=== PATIENT | male | born 1975 | race Caucasian/White ===

== ENCOUNTER 2016-11-16 16:49 | Inpatient (IN) | payer OTHER ==
[~2016-11-16] VITALS: Ht 193 cm; Wt 156.7 kg
[2016-11-16] MEDS ORDERED: LVNIS80 SC (18:23)
[2016-11-16] MEDS ORDERED: DOCU-94 PO (18:23)
[2016-11-16] MEDS ORDERED: CHOL2000 PO (18:23)
[2016-11-16] MEDS ORDERED: GABA600T PO (18:23)
[2016-11-16] MEDS ORDERED: ASCO10003 PO (18:23)
[2016-11-16] MEDS ORDERED: METH-307 PO (18:23)
[2016-11-16] MEDS ORDERED: HYDR-4079 PO (18:23)
[2016-11-16 18:42] LABS: BASO % 0.5 %; BASO ABS # 0.03 K/uL (0-0.2); COMPLETE YES; EOS % 1.9 %; HEMATOCRIT 35.9 % (42-52); IG% 0.2 %; LYMPH % 39.2 %; LYMPH ABS # 2.26 K/uL (1.2-3.4); MEAN CELL VOLUME 91.1 fL (80-100); MEAN CORPUSCULAR HEMOGLOBIN 29.2 pg (25-34); MEAN PLATELET VOLUME 9.8 fL (7.4-10.4); MONO % 7.8 %; NEUT % 50.4 %; PLATELET COUNT 290 K/uL (130-400); RED BLOOD COUNT 3.94 M/uL (4.7-6.1); WHITE BLOOD COUNT 5.76 K/uL (4.8-10.8)
[2016-11-16 18:59] LABS: PARTIAL THROMBOPLASTIN RATIO 1.2
[2016-11-16 19:00] LABS: ALT/SGPT 33 U/L (12-78); AST/SGOT 41 U/L (15-37); BLOOD UREA NITROGEN 12 mg/dl (7-18); BUN/CREATININE RATIO 12.4 (10-20); CALCIUM 9.7 mg/dl (8.5-10.1); CARBON DIOXIDE 32 mmol/L (21-32); CHLORIDE 103 mmol/L (98-107); CREATININE 0.93 mg/dl (0.60-1.40); GLUCOSE 104 mg/dl (70-99); POTASSIUM 4.2 mmol/L (3.5-5.1); SODIUM 141 mmol/L (136-145)
[2016-11-16 19:03] LABS: ALKALINE PHOSPHATASE 82 U/L (45-117)
[2016-11-16] MEDS ORDERED: TRAMADOL HCL 50 MG TAB PO PRN (20:00)
[2016-11-16] MEDS ORDERED: ONDANSETRON INJ 2 MG/ML 2 ML VIAL IV PRN (20:00)
[2016-11-16] MEDS ORDERED: ACETAMINOPHEN 325 MG TAB PO PRN (20:00)
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
[2016-11-16] MEDS: METHOCARBAMOL 750 MG TAB PO SCH (21:00)
[2016-11-16] MEDS: GABAPENTIN 600 MG TAB PO SCH (21:00)
[2016-11-16] MEDS: HYDROCODONE/ACETAMI 10/325 TAB PO PRN (21:09)
[2016-11-16] MEDS ORDERED: HEPARIN 25000 UNIT/500 ML D5W ONE (21:11)
[2016-11-16] MEDS ORDERED: HEPARIN SOD 5000 UNIT/0.5 ML CARP ONE (21:11)
[2016-11-16 22:30] VITALS: BP 127/81; PULSE 96; TEMP 36.6; O2SAT 96; Ht 193 cm; Wt 156.7 kg
[2016-11-16 22:42] VITALS: BP 127/81; PULSE 95; TEMP 36.6; O2SAT 95
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
[2016-11-17 00:30] VITALS: BP 123/76; PULSE 95; TEMP 36.6; O2SAT 91
[2016-11-17] MEDS: HYDROCODONE/ACETAMI 10/325 TAB PO PRN ×4 (03:57→22:52)
[2016-11-17 04:10] LABS: HEMATOCRIT 32.3 % (42-52); MEAN CELL VOLUME 91.2 fL (80-100); MEAN CORPUSCULAR HEMOGLOBIN 28.8 pg (25-34); MEAN CORPUSCULAR HGB CONC 31.6 g/dl (32-36); MEAN PLATELET VOLUME 9.8 fL (7.4-10.4); PLATELET COUNT 255 K/uL (130-400); RED BLOOD COUNT 3.54 M/uL (4.7-6.1); WHITE BLOOD COUNT 4.92 K/uL (4.8-10.8)
[2016-11-17 04:36] LABS: BUN/CREATININE RATIO 12.8 (10-20); CALCIUM 9.3 mg/dl (8.5-10.1); CREATININE 0.82 mg/dl (0.60-1.40); POTASSIUM 4.3 mmol/L (3.5-5.1)
[2016-11-17 04:40] LABS: PARTIAL THROMBOPLASTIN RATIO 1.9
[2016-11-17 04:42] LABS: BASO % 0.4 %; BASO ABS # 0.02 K/uL (0-0.2); COMPLETE YES; LYMPH % 50.8 %; MONO % 6.3 %; NEUT % 39.5 %
[2016-11-17 07:38] VITALS: BP 118/77; PULSE 81; TEMP 36.3; O2SAT 97
[2016-11-17] MEDS: METHOCARBAMOL 750 MG TAB PO SCH ×4 (08:57→20:25)
[2016-11-17] MEDS: GABAPENTIN 600 MG TAB PO SCH ×3 (08:57→20:25)
[2016-11-17] MEDS: HEPARIN 25,000 UNIT/500ML D5W 500 ML IV PRN ×2 (09:33→22:53)
[2016-11-17 14:46] VITALS: BP 118/77; PULSE 98; TEMP 36.5; O2SAT 96
[2016-11-17] MEDS: POLYETHYLENE (MIRALAX) 17 GM PACK PO SCH (20:24)
[2016-11-17] MEDS: DOCUSATE SODIUM 100 MG CAP PO SCH (20:24)
--- NOTE | 2016-11-17 21:31 | Hospitalist Progress Note ---
Hospitalist Progress Note Date of Service Nov 17, 2016. Subjective Pt evaluation today including: conversation w/ patient, physical exam patient with no complaints All Other Systems: Reviewed and Negative Objective Vital Signs Date Time Temp Pulse Resp B/P Pulse Ox O2 Delivery O2 Flow Rate FiO2 11/17/16 20:01 Room Air 11/17/16 15:55 Room Air 11/17/16 14:46 36.5 98 20 118/77 96 11/17/16 08:00 Room Air 11/17/16 07:38 36.3 81 18 118/77 97 11/17/16 04:05 Room Air 11/17/16 00:30 36.6 95 20 123/76 91 Room Air 11/17/16 00:05 Room Air 11/16/16 22:42 36.6 95 18 127/81 95 Room Air 11/16/16 22:30 36.6 96 18 127/81 96 Room Air 11/16/16 21:15 94 24 129/83 97 Room Air Physical Exam General Appearance: no apparent distress Eyes: normal inspection ENT: hearing grossly normal Neck: trachea midline Respiratory/Chest: lungs clear Cardiovascular: regular rate, rhythm Abdomen: normal bowel sounds, non tender, soft Laboratory Results Last 24 Hours Test 11/17/16 03:49 White Blood Count 4.92 K/uL Red Blood Count 3.54 M/uL Hemoglobin 10.2 g/dL Hematocrit 32.3 % Mean Corpuscular Volume 91.2 fL Mean Corpuscular Hemoglobin 28.8 pg Mean Corpuscular Hemoglobin Concent 31.6 g/dl Platelet Count 255 K/uL Mean Platelet Volume 9.8 fL Neutrophils (%) (Auto) 39.5 % Lymphocytes (%) (Auto) 50.8 % Monocytes (%) (Auto) 6.3 % Eosinophils (%) (Auto) 3.0 % Basophils (%) (Auto) 0.4 % Neutrophils # (Auto) 1.94 K/uL Lymphocytes # (Auto) 2.50 K/uL Monocytes # (Auto) 0.31 K/uL Eosinophils # (Auto) 0.15 K/uL Basophils # (Auto) 0.02 K/uL RDW Standard Deviation 45.6 fL RDW Coefficient of Variation 13.5 % Immature Granulocyte % (Auto) 0.0 % Immature Granulocyte # (Auto) 0.00 K/uL Red Blood Cell Morphology Unremarkable Activated Partial Thromboplast Time 48.7 SECONDS Partial Thromboplastin Ratio 1.9 Sodium Level 141 mmol/L Potassium Level 4.3 mmol/L Chloride Level 103 mmol/L Carbon Dioxide Level 33 mmol/L Anion Gap 5.0 mmol/L Blood Urea Nitrogen 10 mg/dl Creatinine 0.82 mg/dl Est Creatinine Clear Calc Drug Dose 198.2 ml/min Estimated GFR () 130.0 Estimated GFR (Non- 112.2 BUN/Creatinine Ratio 12.8 Random Glucose 97 mg/dl Calcium Level 9.3 mg/dl Magnesium Level 2.0 mg/dl Assessment and Plan (1) Left leg DVT Assessment & Plan: on iv heparin will consider switch to xarelto or elequis on 11/18. Will check to see which is covered by insurance. Warfarin would not be the best option based on the amount of disease he has present. (2) Hypertension
[2016-11-18 00:29] VITALS: BP 146/83; PULSE 93; TEMP 36.6; O2SAT 96
[2016-11-18 06:25] LABS: PARTIAL THROMBOPLASTIN RATIO 1.5
[2016-11-18] MEDS ORDERED: HEPARIN IV BOLUS 5,000 UNIT in SYRINGE 0 ML IV ONE (07:15)
[2016-11-18 07:23] VITALS: BP 134/74; PULSE 80; TEMP 36.6; O2SAT 97
[2016-11-18] MEDS: GABAPENTIN 600 MG TAB PO SCH ×3 (07:46→20:55)
[2016-11-18] MEDS: METHOCARBAMOL 750 MG TAB PO SCH ×4 (07:46→20:55)
[2016-11-18] MEDS: HYDROCODONE/ACETAMI 10/325 TAB PO PRN ×3 (07:46→21:10)
[2016-11-18] MEDS: HEPARIN 25,000 UNIT/500ML D5W 500 ML IV PRN (07:57)
[2016-11-18] MEDS: POLYETHYLENE (MIRALAX) 17 GM PACK PO SCH ×2 (08:03→20:56)
[2016-11-18] MEDS: DOCUSATE SODIUM 100 MG CAP PO SCH ×2 (08:03→20:55)
--- NOTE | 2016-11-18 12:10 | Hospitalist Progress Note ---
Hospitalist Progress Note Date of Service Nov 18, 2016. Subjective Pt evaluation today including: conversation w/ patient, conversation w/ family Patient with no complaints no chest pain no shortness of breath Medications Last Resulted CBC 11/17/16 03:49 Red Blood Count 3.54, Mean Corpuscular Volume 91.2, Mean Corpuscular Hemoglobin 28.8, Mean Corpuscular Hemoglobin Concent 31.6, Mean Platelet Volume 9.8, Neutrophils (%) (Auto) 39.5, Lymphocytes (%) (Auto) 50.8, Monocytes (%) (Auto) 6.3, Eosinophils (%) (Auto) 3.0, Basophils (%) (Auto) 0.4, Neutrophils # (Auto) 1.94, Lymphocytes # (Auto) 2.50, Monocytes # (Auto) 0.31, Eosinophils # (Auto) 0.15, Basophils # (Auto) 0.02 Last Resulted BMP 11/17/16 03:49 Medications (Trade) Dose Ordered Sig/Pamella Route Start Time Stop Time Status Last Admin Dose Admin Docusate Sodium (coLACE CAP) 100 mg BID PO 11/17/16 21:00 12/17/16 20:59 11/18/16 08:03 100 MG Polyethylene 17 gm 17 gm BID PO 11/17/16 21:00 12/17/16 20:59 11/18/16 08:03 17 GM Heparin Sodium (Porcine)/Syringe (Heparin Iv Bolus/Syringe) 5 ml @ 10 mls/min NOW ONCE IV 11/18/16 07:15 11/18/16 07:16 DC 11/18/16 07:53 10 MLS/MIN Objective Vital Signs Date Time Temp Pulse Resp B/P Pulse Ox O2 Delivery O2 Flow Rate FiO2 11/18/16 08:00 Room Air 11/18/16 07:23 36.6 80 16 134/74 97 Room Air 11/18/16 00:29 36.6 93 20 146/83 96 Room Air 11/18/16 00:05 Room Air 11/17/16 20:01 Room Air 11/17/16 15:55 Room Air 11/17/16 14:46 36.5 98 20 118/77 96 Physical Exam General Appearance: WD/WN, no apparent distress Eyes: normal inspection ENT: hearing grossly normal Neck: trachea midline Respiratory/Chest: lungs clear Cardiovascular: regular rate, rhythm Abdomen: non tender Extremities: normal range of motion Neurologic/Psychiatric: alert, normal mood/affect Laboratory Results Last 24 Hours Test 11/18/16 05:14 Activated Partial Thromboplast Time 38.6 SECONDS Partial Thromboplastin Ratio 1.5 Assessment and Plan (1) Left leg DVT Assessment & Plan: Discussed the case with Dr. Smith. I am going to obtain records from [place], arterial clot is doubtful. Patient and his state that he was taking 4 shots a day, 2 80 mg syringes. He missed none of his doses. He was late a couple of times in giving the shots, ie 3 hours late. His BMI makes newer agents not an option since they have not been studied in BMI over 40, and his is 42. Converserion to coumadin seems to be his best option at this point. I will ask Dr. Sneed to see it is not clear at this point to me that he even failed lovenox. Another option would be to send home of lovenox with monitoring of XA levels. Will start warfarin tonight with heparin bridge. (2) Hypertension (3) Morbid (severe) obesity due to excess calories Assessment & Plan: BMI of 42
[2016-11-18 14:45] LABS: PARTIAL THROMBOPLASTIN RATIO 1.9
[2016-11-18 15:41] VITALS: BP 126/76; PULSE 96; TEMP 36.5; O2SAT 95
[2016-11-18] MEDS ORDERED: WARFARIN SOD 5 MG TAB PO ONE (18:30)
[2016-11-18 19:26] LABS: HEMATOCRIT 32.9 % (42-52); MEAN CELL VOLUME 90.4 fL (80-100); MEAN CORPUSCULAR HEMOGLOBIN 28.8 pg (25-34); MEAN CORPUSCULAR HGB CONC 31.9 g/dl (32-36); MEAN PLATELET VOLUME 10.1 fL (7.4-10.4); PLATELET COUNT 244 K/uL (130-400); RED BLOOD COUNT 3.64 M/uL (4.7-6.1); WHITE BLOOD COUNT 4.57 K/uL (4.8-10.8)
[2016-11-19] VITALS: BP 121/81; PULSE 94; TEMP 36.7; O2SAT 94
[2016-11-19] MEDS: HYDROCODONE/ACETAMI 10/325 TAB PO PRN ×3 (05:46→19:34)
[2016-11-19 07:26] VITALS: BP 155/77; PULSE 86; TEMP 36.7; O2SAT 95
[2016-11-19 07:48] LABS: MEAN CORPUSCULAR HEMOGLOBIN 29.3 pg (25-34); MEAN CORPUSCULAR HGB CONC 32.6 g/dl (32-36); MEAN PLATELET VOLUME 9.9 fL (7.4-10.4); PLATELET COUNT 230 K/uL (130-400); RED BLOOD COUNT 3.89 M/uL (4.7-6.1)
[2016-11-19] MEDS: POLYETHYLENE (MIRALAX) 17 GM PACK PO SCH ×2 (07:49→21:12)
[2016-11-19] MEDS: GABAPENTIN 600 MG TAB PO SCH ×3 (07:50→21:13)
[2016-11-19] MEDS: METHOCARBAMOL 750 MG TAB PO SCH ×4 (07:50→21:13)
[2016-11-19] MEDS: DOCUSATE SODIUM 100 MG CAP PO SCH ×2 (07:50→21:13)
[2016-11-19 08:12] LABS: PROTHROMBIN TIME (PATIENT) 11.1 SECONDS (9.0-12.0)
[2016-11-19] MEDS: HEPARIN 25,000 UNIT/500ML D5W 500 ML IV PRN (09:01)
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
[2016-11-19 15:01] VITALS: BP 127/85; PULSE 98; TEMP 36.4; O2SAT 95
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
[2016-11-19] MEDS ORDERED: WARFARIN SOD 10 MG TAB PO ONE (18:00)
[2016-11-20 00:10] VITALS: BP 153/81; PULSE 96; TEMP 36.8; O2SAT 95
[2016-11-20] MEDS: HYDROCODONE/ACETAMI 10/325 TAB PO PRN ×3 (01:32→13:44)
[2016-11-20 07:37] VITALS: BP 122/75; PULSE 72; TEMP 36.5; O2SAT 96
[2016-11-20] MEDS: POLYETHYLENE (MIRALAX) 17 GM PACK PO SCH (08:06)
[2016-11-20] MEDS: METHOCARBAMOL 750 MG TAB PO SCH ×3 (08:06→16:38)
[2016-11-20] MEDS: GABAPENTIN 600 MG TAB PO SCH ×2 (08:07→13:44)
[2016-11-20] MEDS: DOCUSATE SODIUM 100 MG CAP PO SCH (08:07)
[2016-11-20 08:24] LABS: PARTIAL THROMBOPLASTIN RATIO 2.1
[2016-11-20] MEDS: HEPARIN 25,000 UNIT/500ML D5W 500 ML IV PRN (10:10)
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
[2016-11-20 14:47] LABS: INR 1.1 (0.9-1.1); PROTHROMBIN TIME (PATIENT) 12.2 SECONDS (9.0-12.0)
[2016-11-20] MEDS ORDERED: WARF5TAB90 PO (15:04)
[2016-11-20] MEDS ORDERED: ENOX120I SQ (15:04)
[2016-11-20] MEDS ORDERED: OXYC-57 PO (15:04)
--- NOTE | 2016-11-20 15:09 | Discharge Instructions ---
Discharge Instructions Date of Service Nov 20, 2016. Admission Reason for Admission: Left Leg Dvt Discharge Discharge Diagnosis / Problem: left leg DVT Discharge Goals Goal(s): Diagnostic testing, Therapeutic intervention Activity Recommendations Activity Limitations: per Instructions/Follow-up section Non-Weightbearing on the left leg until cleared by your Orthopedic Surgeon Instructions / Follow-Up Instructions / Follow-Up You have been treated in the hospital for a DVT (blood clot in your leg). The following changes/additions have been made to your medication list: -Please take Lovenox injections 150 mg twice daily -Coumadin take a total of 10 mg daily Please follow up with Dr. Pena in clinic this , November 23. You will need blood work that day Percocet 1-2 tabs every 4 hours for severe pain. Do not drink alcohol or drive while taking this medication. This may be taken with ibuprofen, but avoid Tylenol. Please follow up with your primary care physician within one week. Call your doctor or return to the emergency department if you have any of the following symptoms: -Fever of 101F or greater -Persistent vomiting - Persistent diarrhea -Lethargy -Chest pain -Shortness of breath -severe dizziness -weakness on one side of your body Current Hospital Diet Patient's current hospital diet: Regular Diet Discharge Diet Recommended Diet: AHA Diet (Heart Healthy) Procedures Procedures Performed: ultrasound lower extremity Pending Studies Studies pending at discharge: no Work Instructions Return To Work: 5 days Medical Emergencies . Who to Call and When: Medical Emergencies: If at any time you feel your situation is an emergency, please call 911 immediately. . Non-Emergent Contact Non-Emergency issues call your: Primary Care Provider . . "Provider Documentation" section prepared by Gilda Duarte. . VTE Core Measure Inpt VTE Proph given/why not?: Enoxaparin (Lovenox)SQ, Other Anticoagulation ( heparin drip, coumadin)
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
[2016-11-20 15:50] VITALS: BP 122/81; PULSE 102; TEMP 36.8; O2SAT 92
[2016-11-20] MEDS ORDERED: WARFARIN SOD 10 MG TAB PO SCH (16:00)
[2016-11-20 16:15] VITALS: BP 122/81; PULSE 102; TEMP 36.8; O2SAT 92
[2016-11-20] MEDS ORDERED: LVNIS150 SQ (16:55)
[2016-11-20] MEDS ORDERED: ENOXAPARIN 150 MG/1ML SYR SQ ONE (17:00)
== END 2016-11-20 17:22 | disposition home health service (06) | DRG 300 ==
LOC: ENRESERVDT → ENRESERVTM → C.EDB 16:51 → C.MED 20:03
PROVIDERS: ADMIT Internal Medicine; ATTEND Family Medicine
DX: I82.402 Acute embolism and thrombosis of unspecified deep veins of left lower extremity (principal); Z68.41 Body mass index [BMI] 40.0-44.9, adult; F19.20 Other psychoactive substance dependence, uncomplicated; M79.605 Pain in left leg; S72.002D Fracture of unspecified part of neck of left femur, subsequent encounter for closed fracture with routine healing; S32.9XXD Fracture of unspecified parts of lumbosacral spine and pelvis, subsequent encounter for fracture with routine healing; V89.2XXD Person injured in unspecified motor-vehicle accident, traffic, subsequent encounter; K59.03 Drug induced constipation; T40.2X5A Adverse effect of other opioids, initial encounter; I10 Essential (primary) hypertension; E66.01 Morbid (severe) obesity due to excess calories; Z87.891 Personal history of nicotine dependence; Z86.711 Personal history of pulmonary embolism; Z79.01 Long term (current) use of anticoagulants; Z79.891 Long term (current) use of opiate analgesic; Z79.899 Other long term (current) drug therapy

== ENCOUNTER 2016-12-05 11:01 | Emergency (ER) | payer OTHER ==
[~2016-12-05] VITALS: Ht 193 cm; Wt 155.0 kg
[~2016-12-05 11:01] MED LIST: ASCO10003 PO; CHOL2000 PO; DOCU-94 PO; GABA600T PO; HYDR-4079 PO; LVNIS150 SQ; METH-307 PO; WARF5TAB90 PO
[2016-12-05 11:10] VITALS: TEMP 36.4; Ht 193 cm; Wt 155.0 kg
[2016-12-05] MEDS ORDERED: WARF5TAB7 PO ×2 (11:59→12:54)
--- NOTE | 2016-12-05 12:36 | DIAGNOSTIC IMAGING REPORT ---
Arterial Doppler left leg LEFT ART DOP DUPLEX LW EXT UNI CLINICAL HISTORY: Left foot color change, hx DVT, cold to palpation, purple pain. Edema. TECHNIQUE: Arterial Doppler left leg COMPARISON STUDY: 11/16/2016 FINDINGS: Triphasic waveforms are noted throughout. Velocity characteristics are unremarkable. There is no evidence for significant stenotic process. IMPRESSION: Normal arterial Doppler left leg. No change from the prior exam. Electronically signed by: Dl Snyder M.D. 12/05/2016 12:35 PM Dictated Date/Time: 12/05/2016 12:33 PM
[2016-12-05] MEDS ORDERED: OMEG10007 PO (12:54)
[2016-12-05] MEDS ORDERED: HYDROCODONE/ACETAMOPHEN 5/325MG TAB PO STA (13:36)
[2016-12-05 13:41] LABS: BUN/CREATININE RATIO 17.2 (10-20); CALCIUM 9.7 mg/dl (8.5-10.1); CREATININE 0.82 mg/dl (0.60-1.40); POTASSIUM 4.1 mmol/L (3.5-5.1)
[2016-12-05 13:43] LABS: ALB/GLOB RATIO 0.8 (0.9-2); INR 2.6 (0.9-1.1); PARTIAL THROMBOPLASTIN RATIO 1.6; PROTHROMBIN TIME (PATIENT) 28.7 SECONDS (9.0-12.0)
[2016-12-05 14:07] LABS: BASO % 0.5 %; BASO ABS # 0.03 K/uL (0-0.2); COMPLETE YES; EOS % 2.3 %; HEMATOCRIT 36.7 % (42-52); IG% 0.2 %; LYMPH % 33.2 %; LYMPH ABS # 2.13 K/uL (1.2-3.4); MEAN CELL VOLUME 86.4 fL (80-100); MEAN CORPUSCULAR HEMOGLOBIN 28.2 pg (25-34); MEAN CORPUSCULAR HGB CONC 32.7 g/dl (32-36); MEAN PLATELET VOLUME 10.1 fL (7.4-10.4); MONO % 7.5 %; NEUT % 56.3 %; PLATELET COUNT 318 K/uL (130-400); RED BLOOD COUNT 4.25 M/uL (4.7-6.1); WHITE BLOOD COUNT 6.41 K/uL (4.8-10.8)
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
--- NOTE | 2016-12-05 14:43 | Anticoagulation Clinic ---
Anticoagulation Progress Note Patient reports increased swelling in LLE, which on exam, is somewhat cooler more distally (pulse present) and is mildly discolored. Patient sent to ED for doppler evaluation, which was unchanged from previous. Therapeutic INR. No change in anticoagulation management indicated. AC clinic A/P reviewed.
[2016-12-05 14:58] VITALS: BP 137/78; PULSE 102; O2SAT 97
== END 2016-12-05 14:59 | disposition home or self-care (01) ==
LOC: C.EDB 11:02 → C.EDC 14:59
DX: M79.89 Other specified soft tissue disorders (principal); I10 Essential (primary) hypertension; D64.9 Anemia, unspecified; Z79.01 Long term (current) use of anticoagulants; Z79.899 Other long term (current) drug therapy; Z86.718 Personal history of other venous thrombosis and embolism; Z82.49 Family history of ischemic heart disease and other diseases of the circulatory system; Z83.3 Family history of diabetes mellitus; F17.200 Nicotine dependence, unspecified, uncomplicated